=== PATIENT | male | born 1965 | race Caucasian/White ===

== ENCOUNTER → 2022-05-18 | Outpatient (CLI) | payer MEDICARE, MEDICAID, SELFPAY ==
--- NOTE | 2022-05-18 15:19 | MRI_ITS ---
EXAM: MR LUMBAR SPINE WITHOUT AND WITH INTRAVENOUS CONTRAST CLINICAL INDICATION: LUBOSACRAL RADICULOPATHY;LUMBAGO WITH RT SIDED SCIATICA TECHNIQUE: Multiplanar and multisequence MR images of the lumbar spine without and with intravenous contrast. Magnetic field strength 1.5 T. This report was created using Prom[employer] report Pathway [employer] technology. CONTRAST: 19 mL of Clariscan IV. COMPARISON: None. FINDINGS: VERTEBRAE: See below. SPINAL CORD: Unremarkable. Normal position and signal intensity of the conus medullaris. SOFT TISSUES: Unremarkable. DISCS/SPINAL CANAL/NEURAL FORAMINA: L1-L2: Unremarkable. Normal disc height and morphology. Normal spinal canal and lateral recesses. Normal neuroforamina. L2-L3: Loss of disc signal and mild loss of disc height. No spinal canal, lateral recess, or foraminal stenosis. L3-L4: Unremarkable. Normal disc height and morphology. Normal spinal canal and lateral recesses. Normal neuroforamina. L4-L5: Loss of disc signal. No spinal stenosis. Moderate bilateral facet arthropathy. Mild neural foraminal narrowing bilaterally due to facet arthropathy. L5-S1: Mild loss of disc height and disc signal. Mild generalized disc bulge. No spinal canal, foraminal, or lateral recess stenosis. Moderate bilateral facet arthropathy. Mild neural foraminal narrowing bilaterally due to facet arthropathy. MRI/Spine Lumbar W/WO Contrast IMPRESSION: 1. Moderate bilateral facet arthropathy L4-L5 and L5-S1 with associated mild bilateral neural foraminal narrowing. 2. Mild degenerative disc disease L2-L3, L4-L5, and L5-S1 without spinal stenosis or definite nerve root impingement. Electronically Signed: Ahmet Mcconnell MD at 7:02 EDT ,
--- NOTE | 2022-05-18 15:21 | MRI_ITS ---
EXAM: MR PELVIS WITHOUT AND WITH INTRAVENOUS CONTRAST CLINICAL INDICATION: LUMBOSACRAL RADICULOPATHY;LUMBAGO WITH RT SIDED SCIATICA TECHNIQUE: Multiplanar and multisequence MR images of the pelvis without and with intravenous contrast. This report was created using [employer] report Turn technology. CONTRAST: 19 mL of Clariscan IV. COMPARISON: None. FINDINGS: APPENDIX: No evidence of acute appendicitis. INTRAPERITONEAL SPACE: Unremarkable. No ascites or other fluid collection. BLADDER: Unremarkable. REPRODUCTIVE: Unremarkable as visualized. No mass. BONES/JOINTS: Unremarkable. No suspicious lytic or blastic abnormality. SOFT TISSUES: Unremarkable. No pelvic wall hernia. LYMPH NODES: Unremarkable. No enlarged lymph nodes. MRI/Pelvis W/WO Contrast IMPRESSION: Normal pelvis MRI. Electronically Signed: Ahmet Mcconnell MD at 7:06 EDT ,
== END | disposition home or self-care (01) ==
PROVIDERS: PCP Family Medicine Geriatric Medicine
DX: M54.17 Radiculopathy, lumbosacral region (principal); M54.41 Lumbago with sciatica, right side
CPT/HCPCS: 72158; 72197; A9575

== ENCOUNTER → 2022-08-11 | Outpatient (CLI) | payer MEDICARE, MEDICAID, SELFPAY ==
--- NOTE | 2022-08-11 17:52 | MRI_ITS ---
STUDY: MRI BRAIN WITH AND WITHOUT CONTRAST REASON FOR EXAM: Male, 57 years old. OPTIC NERVE ATROPHY- bilat vision loss TECHNIQUE: Standardized multiplanar fat and water weighted pulse sequences were obtained. IV 18cc clariscan was administered for the contrast portion of the examination. COMPARISON: None. FINDINGS: Normal size of the ventricles and extra-axial spaces for the patient''s age. Mild periventricular white matter ischemic changes without mass effect or restricted diffusion... Normal bilateral basal ganglia. Normal thalami. There is no extra-axial fluid accumulation. Normal flow voids within the major intracranial circulation suggesting patency by spin echo criteria. Normal venous enhancement. There is no enhancing intra-axial or extra-axial abnormality. Normal sella turcica, pituitary gland, infundibular stalk, optic chiasm and hypothalamus. Normal tectal plate and pineal gland. Normal midbrain, stefan and medulla. Normal cerebellum. Normal basal cisterns. Normal bilateral temporal bones. Normal bilateral internal auditory canals. Postsurgical changes of the orbits.. Minor mucosal thickening of the ethmoid air cells bilaterally and right frontal sinus. Normal calvarium and skull base. Normal visualized soft tissue structures. Normal visualized upper cervical spine. MRI/Brain W/WO Contrast IMPRESSION: Mild periventricular white matter ischemic changes without evidence for acute infarct Minor bilateral ethmoid and right frontal sinus disease likely chronic Electronically Signed: Miguel Carpio MD at 21:42 EDT ,
== END | disposition home or self-care (01) ==
PROVIDERS: PCP Family Medicine
DX: H47.212 Primary optic atrophy, left eye (principal)
CPT/HCPCS: 70553; A9575

== ENCOUNTER 2023-04-13 13:30 | Day surgery (SDC) | payer MEDICARE, MEDICAID, SELFPAY ==
[2023-04-13 13:54] VITALS: BP 126/66; PULSE 84; RESP 16; TEMP 36.7; O2SAT 98; BMI 27.7
[2023-04-13] MEDS: Lactated Ringers 1,000 ML 15 ML IV (13:59)
--- NOTE | 2023-04-13 14:30 | HP.PCM_ITS ---
[facility] - General General Date of Admission: 04/13/23 Date of Service: 04/13/23 Chief Complaint: Screening colonoscopy HPI Narrative EVON MEDELLIN, is a 58 M who presents today for screening colonoscopy. He has never had a colonoscopy in the past. He denies any abdominal pain. He denies any chest pain or shortness of breath. He denies any headache or dizziness. He does take aspirin on a daily basis. He does have past medical history of seizure disorder which is controlled on medical therapy. [facility] Medical History (Updated 04/07/23 @ 14:52 by Bri Reyez) Alcohol dependence with intoxication, uncomplicated Alcohol use Alcohol use, unspecified with alcohol-induced persisting dementia Antisocial personality disorder Arthritis Back pain Chronic obstructive pulmonary disease, unspecified Conduct disorder, unspecified Constipation, unspecified Delusional disorders Depression Essential (primary) hypertension Gastric reflux Gastro-esophageal reflux disease without esophagitis High cholesterol Hypercholesteremia Hyperlipidemia Hypertension Impulse disorder, unspecified Legal blindness, as defined in [place] Major depressive disorder, recurrent, mild Need for assistance with personal care Paranoid schizophrenia Peripheral vascular disease, unspecified Primary generalized (osteo)arthritis Primary optic atrophy, 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 Schizophrenia Seasonal allergies Smoker Spondylosis without myelopathy or radiculopathy, lumbosacral region Substance abuse Sympathetic uveitis, unspecified eye Unspecified dementia, severe, with other behavioral disturbance Home Medications aspirin 81 mg tablet,delayed release (Adult Low Dose Aspirin) 81 mg PO BID 03/22/23 [History Last Taken 04/09/23] clonazepam 2 mg tablet (Klonopin) 2 mg PO TID 03/22/23 [History Last Taken Unknown] divalproex 500 mg tablet,delayed release (Depakote) 500 mg PO BID 03/22/23 [History Last Taken 04/13/23] fexofenadine 180 mg tablet (Carmen Allergy) 180 mg PO DAILY 03/22/23 [History Last Taken Unknown] haloperidol 1 mg tablet 1 mg PO BID 03/22/23 [History Last Taken 04/13/23] haloperidol lactate 5 mg/mL injection solution 5 mg IM Q6H PRN agitation 03/22/23 [History Last Taken Unknown] lidocaine 4 % topical patch 1 patch topical BID PRN pain 03/22/23 [History Last Taken Unknown] lorazepam 1 mg tablet (Ativan) 1 mg PO Q6H PRN agitation 03/22/23 [History Last Taken Unknown] lorazepam 2 mg/mL injection solution (Ativan) 1 mg IM Q6H PRN agitation 03/22/23 [History Last Taken Unknown] menthol 4 % topical gel (Biofreeze (menthol)) 1 applic topical Q6H PRN pain 03/22/23 [History Last Taken Unknown] paliperidone 9 mg tablet,extended release 24 hr (Invega) 9 mg PO DAILY 03/22/23 [History Last Taken Unknown] polyethylene glycol 3350 17 gram/dose oral powder (Miralax) 4 g PO DAILY 03/22/23 [History Last Taken Unknown] polyvinyl alcohol 1.4 % eye drops 1 drp ophthalmic (eye) TID 03/22/23 [History Last Taken Unknown] cholecalciferol (vitamin D3) 1,250 mcg (50,000 unit) capsule 1,250 mcg PO QWEEK 03/23/23 [History Last Taken Unknown] cholecalciferol (vitamin D3) 50 mcg (2,000 unit) capsule 50 mcg PO DAILY 03/23/23 [History Last Taken Unknown] haloperidol 5 mg tablet 5 mg PO .Q6hrs PRN agitation 03/23/23 [History Last Taken Unknown] mecobalamin (vitamin B12) 1,000 mcg chewable tablet 1,000 mcg PO DAILY 03/23/23 [History Last Taken Unknown] medroxyprogesterone 10 mg tablet (Provera) 10 mg PO DAILY 03/23/23 [History Last Taken 04/13/23] nabumetone 500 mg tablet 500 mg PO BID 03/23/23 [History Last Taken Unknown] triamcinolone acetonide 55 mcg nasal spray aerosol (Nasacort Allergy) 2 spray intranasal DAILY 03/23/23 [History Last Taken Unknown] ziprasidone HCl 80 mg capsule 80 mg PO BID 03/23/23 [History Last Taken 04/13/23] acetaminophen 500 mg tablet (Acetaminophen Extra Strength) 1,000 mg PO Q8H PRN PRN pain 04/07/23 [History Last Taken Unknown] albuterol sulfate 90 mcg/actuation aerosol inhaler (ProAir HFA) 1 inh inhalation Q4H 04/07/23 [History Last Taken Unknown] Allergy/AdvReac Type Severity Reaction Status Date / Time No Known Allergies Allergy Verified 04/13/23 13:51 Family History Mother Colon polyps Grandfather Stomach cancer Social History household members: other details: Nursing Facility, [place] housing: retirement current occupational status: disabled Smoking Status: Current every day smoker tobacco type: cigarettes alcohol intake: former ROS Review of Systems ROS Unobtainable: other Constitutional Constitutional: Denies fatigue, fever(s), poor appetite, weight gain or weight loss ENT HEENT: Denies mouth lesions Cardiovascular Cardiovascular: Denies abdominal bloating, abdominal edema or abdominal pain Respiratory/Chest Respiratory/Chest: Denies change in mental status, change in phlegm color, chest congestion or chest tightness Gastrointestinal Gastrointestinal: Denies belching, bloating, change in bowel habits, change in stool character, chewing difficulty, coffee ground emesis, constipation, cramping, diarrhea, dyspepsia, dysphagia, early satiety, excessive flatus, fecal incontinence, heartburn, hematemesis, hematochezia, hemorrhoids, loose stools, melena, nausea, odynophagia, rectal bleeding, tenesmus, vomiting or weight changes Genitourinary Genitourinary: Denies abdominal discomfort, burning urination or itching Musculoskeletal Musculoskeletal: Reports as per HPI; Denies muscle weakness or myalgias Integumentary Integumentary: Denies jaundice Neurologic Neurologic: Denies lack of coordination or weakness Psychiatric Psychiatric: Denies confusion, depression, memory loss, mood swings, paranoia or suicidal ideation Endocrine Endocrinology: Denies systems reviewed and no addt'l complaints, except as documented Hematologic/Lymphatic Hematologic/Lymphatic: Denies anemia, easy bleeding, easy bruising or lymphadenopathy Allergic/Immunologic Allergic/Immunologic: Denies systems reviewed and no addt'l complaints, except as documented Vital Signs Vital Signs Vital Signs: 04/13/23 13:54 04/13/23 13:54 Temperature 98.1 F Temperature Source Temporal Pulse Rate 84 Respiratory Rate 16 Respiratory Pattern Normal Blood Pressure 126/66 H Blood Pressure Mean 86 Blood Pressure Source Monitor Blood Pressure Position Sitting Blood Pressure Location Right Arm Pulse Ox 98 Oxygen Delivery Method Room Air Weight Weight: 198 lb 13.711 oz Body Mass Index (BMI) 27.7 Assessment & Plan Assessment/Plan (1) Encounter for screening for malignant neoplasm of colon: PLAN: He was explained alternatives, risk, benefits including not withstanding bleeding, infection, sepsis, perforation, need for emergent surgery and . He will have an ASA of 3.
--- NOTE | 2023-04-13 14:45 | COLBX_PTH ---
PATHOLOGY RESULTS PATIENT: EVON MEDELLIN LOC: EN U#:[id number] AGE/SX: 58/M ROOM: RE04/13/[address]: Dr. Tab Jacome DO : 1965 BED: DIS: 04/13/2023 SPEC #: [id number] RECD: 04/14/23 08:02 STATUS: BOLIVAR NESS #: [id number] LITZY: 04/13/23 14:[address]: Tab Jacome DEPT: SURGICAL PATHOLOGY RECD BY: Latoya Mcgregor ENTERED: 04/14/23 08:02 SP TYPE: COLON BX OT DR: Dr. Jorge Villarreal MD Tissues: SPLENIC FLEXURE Sigmoid colon biopsy Procedures: Surgery Specimen Level IV HEADER OPERATION: Colonoscopy - open access PRE-OP DIAGNOSIS: Screening TISSUE SUBMITTED: A - Splenic flexure polyp biopsy, B - Sigmoid polyp biopsy MICROSCOPIC DIAGNOSIS A. Splenic flexure polyp, biopsy: Hyperplastic polyp. B. Sigmoid colon polyp, biopsy: Fragments of tubular adenoma. AMPARO:valeria 04/15/2023 MICROSCOPIC DESCRIPTION Slides are reviewed. GROSS DESCRIPTION A - Received in fixative is one container labeled with the patient's name and designated splenic flexure polyp biopsy. The specimen consists of one irregular fragment of light aguirre soft tissue that measures 0.3 x 0.3 x 0.1 cm. The specimen is totally submitted in one cassette. B - Received in fixative is one container labeled with the patient's name and designated sigmoid polyp biopsy. The specimen consists of two irregular fragments of light aguirre soft tissue that in aggregate measure 0.6 x 0.3 x 0.1 cm. The specimen is totally submitted in one cassette. / AMPARO:valeria 04/14/2023 TC:5 CPT: 25369 x2
[2023-04-13 15:10] VITALS: BP 126/66; BP 97/56; PULSE 60; RESP 18; TEMP 36.4; O2SAT 100
--- NOTE | 2023-04-13 15:14 | OP.COLON_ITS ---
Patient Name: Colby Leon Procedure Date: 04/13/2023 2:38 PM Date of : 1965 Age: 58 Procedure: Colonoscopy Indications: Screening for colorectal malignant neoplasm Providers: Tab Jacome DO Referring MD: Tab Jacome DO Medicines: Monitored Anesthesia Care Patient Profile: This is a 58 year old male. Refer to note in patient chart for documentation of history and physical. Last Colonoscopy: none. The patient's first colonoscopy is today. Complications: No immediate complications. Procedure: Pre-Anesthesia Assessment: - Prior to the procedure, a History and Physical was performed, and patient medications and allergies were reviewed. The patient is competent. The risks and benefits of the procedure and the sedation options and risks were discussed with the patient. All questions were answered and informed consent was obtained. Patient identification and proposed procedure were verified by the physician in the pre-procedure area. Mental Status Examination: alert and oriented. Airway Examination: normal oropharyngeal airway and neck mobility. Respiratory Examination: clear to auscultation. CV Examination: normal. Prophylactic Antibiotics: The patient does not require prophylactic antibiotics. Prior Anticoagulants: The patient has taken no anticoagulant or antiplatelet agents. ASA Grade Assessment: II - A patient with mild systemic disease. After reviewing the risks and benefits, the patient was deemed in satisfactory condition to undergo the procedure. The anesthesia plan was to use monitored anesthesia care (MAC). Immediately prior to administration of medications, the patient was re-assessed for adequacy to receive sedatives. The heart rate, respiratory rate, oxygen saturations, blood pressure, adequacy of pulmonary ventilation, and response to care were monitored throughout the procedure. The physical status of the patient was re-assessed after the procedure. After I obtained informed consent, the scope was passed under direct vision. Throughout the procedure, the patient's blood pressure, pulse, and oxygen saturations were monitored continuously. The Colonoscope was introduced through the anus and advanced to the cecum, identified by appendiceal orifice and ileocecal valve. The colonoscopy was performed without difficulty. The patient tolerated the procedure well. The quality of the bowel preparation was adequate. The ileocecal valve, appendiceal orifice, and rectum were photographed. Scope In: 2:51:05 PM Scope Withdrawal Time 0 hours 9 minutes 53 seconds Scope Out: 3:05:47 PM Total Procedure Duration Time 0 hours 14 minutes 42 seconds Findings: The perianal and digital rectal examinations were normal. A few small-mouthed diverticula were found in the sigmoid colon. Two sessile polyps were found in the sigmoid colon and splenic flexure. The polyps were 1 to 2 mm in size. These polyps were removed with a jumbo cold forceps. Resection and retrieval were complete. Verification of patient identification for the specimen was done. The exam was otherwise without abnormality on direct and retroflexion views. Impression: - Diverticulosis in the sigmoid colon. - Two 1 to 2 mm polyps in the sigmoid colon and at the splenic flexure, removed with a jumbo cold forceps. Resected and retrieved. - The examination was otherwise normal on direct and retroflexion views. Recommendation: - Await pathology results. - Repeat colonoscopy in 5 years for surveillance. - Continue present medications. Procedure Code(s): --- Professional --- 79820, Colonoscopy, flexible; with biopsy, single or multiple CPT copyright 2021 [employer]. All rights reserved. The codes documented in this report are preliminary and upon architectural manager review may be revised to meet current compliance requirements. Tab Jacome DO 04/13/2023 3:14:11 PM This report has been signed electronically. Number of Addenda: 0 Note Initiated On: 04/13/2023 2:38 PM
[2023-04-13 15:15] VITALS: BP 107/66; BP 126/66; PULSE 60; RESP 18; O2SAT 97
--- NOTE | 2023-04-13 15:15 | OP.CCLET_ITS ---
04/13/2023 Roberth Villarreal Re : Colonoscopy procedure for Colby Leon Dear Phil This procedure was performed on Thursday, April 13, 2023. My impressions and recommendations are as follows: Impressions : - Diverticulosis in the sigmoid colon. - Two 1 to 2 mm polyps in the sigmoid colon and at the splenic flexure, removed with a jumbo cold forceps. Resected and retrieved. - The examination was otherwise normal on direct and retroflexion views. Recommendations : - Await pathology results. - Repeat colonoscopy in 5 years for surveillance. - Continue present medications. My findings are described in the full procedure note, which is enclosed. If I can be of further assistance, please feel free to contact me at . Sincerely, Tab Jacome, 04/13/2023 3:14:11 PM This report has been signed electronically.
[2023-04-13 15:20] VITALS: BP 110/58; BP 126/66; PULSE 58; RESP 18; O2SAT 100
[2023-04-13 15:25] VITALS: BP 125/82; BP 126/66; PULSE 69; RESP 18; TEMP 37; O2SAT 99
[2023-04-13 15:56] VITALS: BP 126/66
--- OUTSIDE RECORDS SUMMARY | 2023-04-13 18:34 | XMS RPT_ITS | CCD ---
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 Name Role Phone Sheron Villarreal Primary Care Provider [phone] NAZARIO CLEMENS Referring Unavailable NAZARIO CLEMENS Attending Unavailable SHERON VILLARREAL [facility] Unavailab NAZARIO Lyons K Attending Unavailable CLEMENSKADY DELGADOINDER K Referring Unavailable SHERON VILLARREAL [facility] Unavailab le ELBERT, NAZARIO K Attending Unavailable KADY CLEMENSINDER K Referring Unavailable SHERON VILLARREAL [facility] Unavailab le ELBERT, NAZARIO K Attending Unavailable SHERON VILLARREAL [facility] Unavailab le CLEMENS, NAZARIO K Referring Unavailable CLEMENSNAZARIO K Attending Unavailable SHERON VILLARREAL EMILY [facility] Unavailab le Allergies Allergy Classification Reported Allergen(s) Allergy Type Date of Onset Reaction(s) Facility (5 sources) diphenhydrAMINE; Translations: [DIPHENHYDRAMINE HCL] Drug Allergy 09-22-2006 Anaphylaxis [facility] Work Phone: Medications Current Medications Medication Drug Class(es) Dates Sig (Normalized) Sig (Original) benoxinate hydrochloride 4 mg/ml / fluorescein sodium 2.5 mg/ml ophthalmic solution (2 sources) Diagnostic Dye Start: 12-23-2021 End: 12-24-2021 fluorescein-benoxi jerrica 0.25-0.4 % 1 Drop (FLURESS) Completed/Discontinued Medications Medication Drug Class(es) Dates Sig (Normalized) Sig (Original) Albuterol (4 sources) beta2-Adrenergic Agonist albuter ol sulfate (VENTOLIN HFA INHALATION) Inhale 1 Puff as instructed as directed. 0 Active Problems Active Problems Problem Classification Problem Date Documented Da te Episodic/Chronic Cataract (20 sources) After-cataract with vision obscured following extraction of cataract; Translations: [Other secondary cataract, bilateral] Onset: 12-25-2020 Chronic Inflammation; infection of eye (except that caused by tuberculosis or sexually transmitteddisease) (9 sources) Iridocyclitis; Translations: [Chronic iridocyclitis, bilateral] Onset: 12-25-2020 Chronic Other eye disorders (5 sources) Optic atrophy of left eye; Translations: [Other optic atrophy, left eye] Onset: 12-25-2020 Chronic Other hematologic conditions (7 sources) H/O: Disorder; Translations: [Personal history of diseases of the blood and blood-forming organs and certain disorders involving the immune mechanism] Onset: 12-25-2020 Episodic Other nervous system disorders (1 source) History of uveitis; Translations: [Personal history of other diseases of the nervous system and sense organs] Episodic Retinal detachments; defects; vascular occlusion; and retinopathy (8 sources) Bilateral age-related exudative degeneration of macula; Translations: [Exudative age-related macular degeneration, bilateral, stage unspecified] Onset: 12-25-2020 Chronic Schizophrenia and other psychotic disorders (8 sources) Schizophrenia; Translations: [Schizophrenia, unspecified] 10-06-2006 Chronic Past or Other Problems Problem Classification Problem Date Documented Da te Episodic/Chronic Nausea and vomiting (4 sources) Nausea and vomiting; Translations: [Nausea with vomiting, unspecified] Onset: 09-28-2006 09-28-2006 Episodic Results Test Name Value Interpretation Reference Range Facil ity Encounters Encounter Date Encounter Type Care Provider Facility Start: 06-15-2022 End: 06-15-2022 ambulatory NAZARIO CLEMENS Facility:[facility] Start: 04-03-2022 End: 04-03-2022 ambulatory NAZARIO CLEMENS Facility:[facility] Start: 12-23-2021 End: 12-23-2021 ambulatory NAZARIO CLEMENS Facility:[facility] Start: 12-23-2021 End: 12-23-2021 Patient encounter procedure Nazario Clemens MD Work Phone: Ophthalmology Procedures Date Procedure Procedure Detail Performing Clinician Start: 12-23-2021 Fundus photography w/interpretation & report Nazario Clemens MD Work Phone: Start: 12-23-2021 Post-cataract laser surgery Nazario Clemens MD Work Phone: Start: 08-12-2021 Post-cataract laser surgery Nazario Clemens MD Work Phone: Start: 12-25-2020 Fundus photography w/interpretation & report Nazario Clemens MD Work Phone: Plan of Treatment Date Care Activity Detail Author Start: 10-23-2021 Influenza vaccination C [facility] Start: 02-22-2021 DEPRESSION ASSESSMENT DEPRESSION ASS ESSMENT [facility] Start: 10-23-2020 Influenza vaccination INFLUENZA (#1) [facility] Start: 01-31-2020 PROSTATE CANCER SCRE ENING DISCUSSION PROSTATE CANCER SCREENING DISCUSSION [facility] Start: 2015 SHINGRIX VACCINE (1 of 2) SHINGRIX V ACCINE (1 of 2) [facility] Start: 2010 COLOGUARD (FIT-DNA) COLOGUARD (FIT-D NA) [facility] Start: 2010 Colonoscopy COLONOSCOPY [facility] Start: 2010 COLORECTAL CANCER SCREENING COLORECTAL CANCER SCREENING [facility] Start: [address] COLONOGRAPHY [facility] Start: 2010 DIABETES SCREEN DIABETES SCREEN [facility] Start: 2010 FECAL OCCULT BLOOD FECAL OCCULT BLOO D [facility] Start: 2010 SIGMOIDOSCOPY SIGMOIDOSCOPY [facility] Start: 01-14-2006 Urine microalbumin profile DTAP,TDAP ,TD (1 - Tdap) [facility] Start: 01-31-2000 LIPID SCREEN LIPID SCREEN [facility] Start: 1983 HEPATITIS C SCREENING HEPATITIS C SC REENING [facility] Start: 1983 HIV SCREENING HIV SCREENING [facility] Start: 1977 Adult depression scr eening assessment DEPRESSION SCREENING [facility] Start: 1977 COVID-19 VACCINE (1) COVID-19 VACCIN E (1) [facility] Start: 1971 PNEUMOCOCCAL (1 - PCV) PNEUMOCOCCAL (1 - PCV) [facility] Start: 1970 COVID-19 VACCINE (#1) COVID-19 VACCI NE (#1) [facility] Start: 06-09-1966 COVID-19 VACCINE (#1) COVID-19 VACCI NE (#1) [facility] Start: 1965 HEPATITIS B (1 of 3 - 3-dose series) HEPATITIS B (1 of 3 - 3-dose series) [facility] Immunizations Immunization Date Immunization Notes Care Provider Davin agarwal 01-13-2006 tetanus and diphther ia toxoids, adsorbed, preservative free, for adult use (2 Lf of tetanus toxoid and 2 Lf of diphtheria toxoid) Nazario Clemens MD Work Phone: [facility] Work Phone: Payers Date Payer Category Payer Medicaid [facility] MEDICAID MYC ARE [facility] MEDICAID [id number] 2020-Present [phone] [address] [place] [address] Medicaid [id number] 2020 Medicaid [id number] 2020 Medicare [id number] Social History Date Type Detail Facility Start: 12-25-2020 End: 05-05-2021 Tobacco smoking status NHIS Current every day smoker [facility] History of tobacco use [facility]arette [facility] Work Phone: Start: 12-25-2020 End: 05-05-2021 Cigarettes smoked current (pack per day) - Reported [facility] Start: 12-25-2020 End: 12-23-2021 Alcohol intake Current non-drinker of alcohol (finding) [facility] Start: 1965 [facility] Exposure to SARS-CoV -2 (event) Not sure [facility] Start: 05-05-2021 Tobacco use and exposure Smokeless tobacco non-user [facility] Work Phone: Clinical Notes 12-25-2020 to 06-15-2022 Patient InstructionsMohijoaquin Clemens MD - 12/23/2021 3:45 PM EDTPatient InstructionsMonohemi Clemens MD - 09/02/2021 2:43 PM EDTMalma Clemens MD - 08/12/2021 3:26 PM EDT Note Date & Type Note Facility 06-15-2022 Note HNO ID: [id number] Author: Nazario Clemens MD Service: ? Author Type: Physician Type: Progress Notes Filed: 06/15/2022 1:18 PM Note Text: ASSESSMENT/PLAN: 1. Contusion of left eye, initial encounter - ICD9: 921.9, ICD10: S05.12XA (primary diagnosis) Monitor 2. Subluxed cataract of left eye - ICD9: 379.32, ICD10: H27.112 3. Aphakia, left eye - ICD9: 379.31, ICD10: H27.02 Prognosis poor Follow up with Dr. Mars I have confirmed and edited as necessary the relevant ophthalmic history, review of systems, surgical history, and ophthalmological examination findings as obtained by the ophthalmic technical staff. I have seen and examined Colby Leon. I have discussed the examination findings, diagnosis, and treatment options with Colby Leon and/or his family. I have also reviewed and agree with the assessment and plan as stated above and agree with all its relevant components. I gave the patient the opportunity to ask questions about the findings, diagnosis, and treatment options. Nazario Clemens MD [facility] 04-03-2022 Note HNO ID: [id number] Author: Nazario Clemens MD Service: ? Author Type: Physician Type: Progress Notes Filed: 04/03/2022 4:54 PM Note Text: ASSESSMENT/PLAN: 1. Bilateral exudative age-related macular degeneration, unspecified stage (HCC) - ICD9: 362.52, ICD10: H35.3230 (primary diagnosis) -Please monitor each eye daily with Amsler Grid. AREDS 2 Vitamins are available over the counter at any drug store. Continue care with Dr. Mars 2. Optic atrophy Monitor 3. Pseudophakia of both eyes - ICD9: V43.1, ICD10: Z96.1 Yag laser left eye 12/23/2021 Yag laser right eye 08/12/2021 -Stable/Monitor Recommended updated refraction and glasses with Dr. Covington 4. History of sarcoidosis - ICD9: V12.29, ICD10: Z86.2 -Continue to monitor with primary care physician. 5. Other schizophrenia (HCC) - ICD9: 295.80, ICD10: F20.89 -Continue to monitor with primary care physician. I have confirmed and edited as necessary the relevant ophthalmic history, review of systems, surgical history, and ophthalmological examination findings as obtained by the ophthalmic technical staff. I have seen and examined Colby Leon. I have discussed the examination findings, diagnosis, and treatment options with Colby Leon and/or his family. I have also reviewed and agree with the assessment and plan as stated above and agree with all its relevant components. I gave the patient the opportunity to ask questions about the findings, diagnosis, and treatment options. Nazario Clemens MD [facility] 12-23-2021 Note HNO ID: [id number] Author: Nazario Clemens MD Service: ? Author Type: Physician Type: Progress Notes Filed: 12/23/2021 4:33 PM Note Text: ASSESSMENT/PLAN: 1. After-cataract obscuring vision, left - ICD9: 366.53, ICD10: H26.492 (primary diagnosis) - YAG CAPSULOTOMY OS (LEFT EYE) 2. Pseudophakia of both eyes - ICD9: V43.1, ICD10: Z96.1 Monitor 3. Bilateral exudative age-related macular degeneration, unspecified stage (HCC) - ICD9: 362.52, ICD10: H35.3230 - FUNDUS PHOTOS OU (BOTH EYES) Please monitor each eye daily with Amsler Grid. AREDS 2 Vitamins are available over the counter at any drug store. Continue care with Dr. Mars. 4. History of sarcoidosis - ICD9: V12.29, ICD10: Z86.2 Continue to monitor with primary care physician. 5. Other schizophrenia (HCC) - ICD9: 295.80, ICD10: F20.89 Continue to monitor with primary care physician. Nazario Clemens MD I have confirmed and edited as necessary the relevant ophthalmic history, review of systems, surgical history, and ophthalmological examination findings as obtained by the ophthalmic technical staff. I have seen and examined Colby Leon. I have discussed the examination findings, diagnosis, and treatment options with Colby Leon and/or his family. I have also reviewed and agree with the assessment and plan as stated above and agree with all its relevant components. I gave the patient the opportunity to ask questions about the findings, diagnosis, and treatment options. [facility] 12-23-2021 Instructions Nazario Clemens MD - 12/23/2021 3:47 PM EDT Please monitor each eye daily with Amsler Grid. AREDS 2 Vitamins are available over the counter at any drug store. If you have any questions please contact our office at [phone]. After office hours or on the weekend, please call Dr. Clemens on his cell phone at [phone]. documented in this encounter [facility] 12-23-2021 History of Present illness Narrative ASSESSMENT/PLAN: 1. After-cataract obscuring vision, left - ICD9: 366.53, ICD10: H26.492 (primary diagnosis) - YAG CAPSULOTOMY OS (LEFT EYE) 2. Pseudophakia of both eyes - ICD9: V43.1, ICD10: Z96.1 Monitor 3. Bilateral exudative age-related macular degeneration, unspecified stage (HCC) - ICD9: 362.52, ICD10: H35.3230 - FUNDUS PHOTOS OU (BOTH EYES) Please monitor each eye daily with Amsler Grid. AREDS 2 Vitamins are available over the counter at any drug store. Continue care with Dr. Mars. 4. History of sarcoidosis - ICD9: V12.29, ICD10: Z86.2 Continue to monitor with primary care physician. 5. Other schizophrenia (HCC) - ICD9: 295.80, ICD10: F20.89 Continue to monitor with primary care physician. Nazario Clemens MD I have confirmed and edited as necessary the relevant ophthalmic history, review of systems, surgical history, and ophthalmological examination findings as obtained by the ophthalmic technical staff. I have seen and examined Colby Leon. I have discussed the examination findings, diagnosis, and treatment options with Colby Leon and/or his family. I have also reviewed and agree with the assessment and plan as stated above and agree with all its relevant components. I gave the patient the opportunity to ask questions about the findings, diagnosis, and treatment options. documented in this encounter [facility] 09-02-2021 Note HNO ID: [id number] Author: Nazario Clemens MD Service: ? Author Type: Physician Type: Progress Notes Filed: 09/02/2021 2:48 PM Note Text: ASSESSMENT/PLAN: 1. Bilateral exudative age-related macular degeneration, unspecified stage (HCC) - ICD9: 362.52, ICD10: H35.3230 (primary diagnosis) Continue care with Dr. Jerad Breaux 2. After-cataract obscuring vision, left - ICD9: 366.53, ICD10: H26.492 3. Pseudophakia of both eyes - ICD9: V43.1, ICD10: Z96.1 Prognosis guarded left eye, Visual acuity not likely to improve with Yag laser S/p Yag laser 08/12/2021 Recommended updated refraction and glasses with Dr. Martin Renner Discontinue the Acular in the right eye 4. Other schizophrenia (HCC) - ICD9: 295.80, ICD10: F20.89 5. History of uveitis - ICD9: V12.49, ICD10: Z86.69 6. Delusional disorder (HCC) - ICD9: 297.1, ICD10: F22 Nazario Clemens MD I have confirmed and edited as necessary the relevant ophthalmic history, review of systems, surgical history, and ophthalmological examination findings as obtained by the ophthalmic technical staff. I have seen and examined Colby Leon. I have discussed the examination findings, diagnosis, and treatment options with Colby Leon and/or his family. I have also reviewed and agree with the assessment and plan as stated above and agree with all its relevant components. I gave the patient the opportunity to ask questions about the findings, diagnosis, and treatment options. [facility] 09-02-2021 Instructions Nazario Clemens MD - 09/02/2021 2:47 PM EDT ASSESSMENT/PLAN: 1. Bilateral exudative age-related macular degeneration, unspecified stage (HCC) - ICD9: 362.52, ICD10: H35.3230 (primary diagnosis) Continue care with Dr. Jerad Breaux 2. After-cataract obscuring vision, left - ICD9: 366.53, ICD10: H26.492 3. Pseudophakia of both eyes - ICD9: V43.1, ICD10: Z96.1 Prognosis guarded left eye, Visual acuity not likely to improve with Yag laser S/p Yag laser 08/12/2021 Recommended updated refraction and glasses with Dr. aMrtin Renner Discontinue the Acular in the right eye 4. Other schizophrenia (HCC) - ICD9: 295.80, ICD10: F20.89 5. History of uveitis - ICD9: V12.49, ICD10: Z86.69 6. Delusional disorder (HCC) - ICD9: 297.1, ICD10: F22 Nazario Clemens MD documented in this encounter [facility] 09-02-2021 History of Present illness Narrative ASSESSMENT/PLAN: 1. Bilateral exudative age-related macular degeneration, unspecified stage (HCC) - ICD9: 362.52, ICD10: H35.3230 (primary diagnosis) Continue care with Dr. Jerad Breaux 2. After-cataract obscuring vision, left - ICD9: 366.53, ICD10: H26.492 3. Pseudophakia of both eyes - ICD9: V43.1, ICD10: Z96.1 Prognosis guarded left eye, Visual acuity not likely to improve with Yag laser S/p Yag laser 08/12/2021 Recommended updated refraction and glasses with Dr. Martin Renner Discontinue the Acular in the right eye 4. Other schizophrenia (HCC) - ICD9: 295.80, ICD10: F20.89 5. History of uveitis - ICD9: V12.49, ICD10: Z86.69 6. Delusional disorder (HCC) - ICD9: 297.1, ICD10: F22 Nazario Clemens MD I have confirmed and edited as necessary the relevant ophthalmic history, review of systems, surgical history, and ophthalmological examination findings as obtained by the ophthalmic technical staff. I have seen and examined Colby Leon. I have discussed the examination findings, diagnosis, and treatment options with Colby Leon and/or his family. I have also reviewed and agree with the assessment and plan as stated above and agree with all its relevant components. I gave the patient the opportunity to ask questions about the findings, diagnosis, and treatment options. documented in this encounter [facility] 08-12-2021 Note HNO ID: [id number] Author: Nazario Clemens MD Service: ? Author Type: Physician Type: Progress Notes Filed: 08/12/2021 4:04 PM Note Text: ASSESSMENT/PLAN: 1. After-cataract obscuring vision, right - ICD9: 366.53, ICD10: H26.491 (primary diagnosis) - YAG CAPSULOTOMY OD (RIGHT EYE) VISUAL PROGNOSIS GUARDED RIGHT EYE. Current Ophthalmic Meds keTORolac (ACULAR) 0.5 % ophthalmic solution Use 1 Drop in the right eye four times daily. 2. After-cataract obscuring vision, left - ICD9: 366.53, ICD10: H26.492 Monitor 3. Pseudophakia of both eyes - ICD9: V43.1, ICD10: Z96.1 Intraocular lens implant in good position Both Eyes. 4. Bilateral exudative age-related macular degeneration, unspecified stage (HCC) - ICD9: 362.52, ICD10: H35.3230 Please monitor each eye daily with Amsler Grid. AREDS 2 Vitamins are available over the counter at any drug store. 5. Chronic uveitis of both eyes - ICD9: 364.10, ICD10: H20.13 Monitor 6. History of sarcoidosis - ICD9: V12.29, ICD10: Z86.2 Continue to monitor with primary care physician. 7. Schizoaffective disorder, depressive type (HCC) - ICD9: 295.70, ICD10: F25.1 Continue to monitor with primary care physician/Psychology. Nazario Clemens MD I have confirmed and edited as necessary the relevant ophthalmic history, review of systems, surgical history, and ophthalmological examination findings as obtained by the ophthalmic technical staff. I have seen and examined Colby Leon. I have discussed the examination findings, diagnosis, and treatment options with Colby Leon and/or his family. I have also reviewed and agree with the assessment and plan as stated above and agree with all its relevant components. I gave the patient the opportunity to ask questions about the findings, diagnosis, and treatment options. [facility] 08-12-2021 History of Present illness Narrative ASSESSMENT/PLAN: 1. After-cataract obscuring vision, right - ICD9: 366.53, ICD10: H26.491 (primary diagnosis) - YAG CAPSULOTOMY OD (RIGHT EYE) VISUAL PROGNOSIS GUARDED RIGHT EYE. Current Ophthalmic Meds keTORolac (ACULAR) 0.5 % ophthalmic solution Use 1 Drop in the right eye four times daily. 2. After-cataract obscuring vision, left - ICD9: 366.53, ICD10: H26.492 Monitor 3. Pseudophakia of both eyes - ICD9: V43.1, ICD10: Z96.1 Intraocular lens implant in good position Both Eyes. 4. Bilateral exudative age-related macular degeneration, unspecified stage (HCC) - ICD9: 362.52, ICD10: H35.3230 Please monitor each eye daily with Amsler Grid. AREDS 2 Vitamins are available over the counter at any drug store. 5. Chronic uveitis of both eyes - ICD9: 364.10, ICD10: H20.13 Monitor 6. History of sarcoidosis - ICD9: V12.29, ICD10: Z86.2 Continue to monitor with primary care physician. 7. Schizoaffective disorder, depressive type (HCC) - ICD9: 295.70, ICD10: F25.1 Continue to monitor with primary care physician/Psychology. Nazario Clemens MD I have confirmed and edited as necessary the relevant ophthalmic history, review of systems, surgical history, and ophthalmological examination findings as obtained by the ophthalmic technical staff. I have seen and examined Colby Leon. I have discussed the examination findings, diagnosis, and treatment options with Colby Leon and/or his family. I have also reviewed and agree with the assessment and plan as stated above and agree with all its relevant components. I gave the patient the opportunity to ask questions about the findings, diagnosis, and treatment options. documented in this encounter [facility] documented as of this encounter (statuses as of 09/02/2021) [facility] of Past illness Narrative* Problem Noted Date Resolved Date After-cataract obscuring vision, right 2 09/02/2021 documented as of this encounter (statuses as of 12/23/2021) [facility] Instructions* Patient Instructions* Nazario Clemens MD - 12/25/2020 2:43 PM EDT - continue: Pred Forte eyedrops- 1 drop both eyes daily. Begin: Systane Complete Artificial Tears - Use 1 Drop into both eyes three times a day. Mother to get records from Dr. Mars and bring to us. Please monitor each eye daily with A[employer]ler Grid. AREDS 2 Vitamins are available over the counter at any drug store. If you have any questions please contact our office at [phone]. After office hours or on the weekend, please call Dr. Clemens on his cell phone at [phone]. [facility] History of Present illness Narrative* Nazario Clemens MD - 12/25/2020 2:40 PM EDT ASSESSMENT/PLAN: 1. Bilateral exudative age-related macular degeneration, unspecified stage (HCC) - ICD9: 362.52, ICD10: H35.3230 (primary diagnosis) Please monitor each eye daily with Amsler Grid. AREDS 2 Vitamins are available over the counter at any drug store. Patient's mother to get records from Dr. Mars and bring to us. - FUNDUS PHOTOS OU (BOTH EYES) - OCT MACULA CIRRUS OU (BOTH EYES) 2. 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 3. Pseudophakia of both eyes - ICD9: V43.1, ICD10: Z96.1 - right eye Intraocular lens subluxated. - left eye Intraocular lens well-centered. 4. Optic atrophy of left eye - ICD9: 377.10, ICD10: H47.292 - monitor. 5. HIstory of Chronic uveitis of both eyes - ICD9: 364.10, ICD10: H20.13 - continue: Pred Forte eyedrops- 1 drop both eyes daily. Begin: Systane Complete Artificial Tears - Use 1 Drop into both eyes three times a day. 6. History of sarcoidosis - ICD9: V12.29, ICD10: Z86.2 -monitor. Nazario Clemens MD I have confirmed and edited as necessary the relevant ophthalmic history, review of systems, surgical history, and ophthalmological examination findings as obtained by the ophthalmic technical staff.I have seen and examined Colby Leon. I have discussed the examination findings, diagnosis, and treatment options with Colby Leon and/or his family. I have also reviewed and agree with the assessment and plan as stated above and agree with all its relevant components. I gave the patient the opportunity to ask questions about the findings, diagnosis, and treatment options. [facility] Diagnosis Bilateral exudative age-related macular degeneration, unspecified stage (HCC)- Primary After-cataract obscuring vision, bilateral Pseudophakia of both eyes Lens replaced by other means Optic atrophy of left eye HIstory of Chronic uveitis of both eyes Chronic iridocyclitis, unspecified History of sarcoidosis Personal history of other endocrine, metabolic, and immunity disorders [facility] Diagnosis After-cataract obscuring vision, right- Primary After-cataract obscuring vision, left Pseudophakia of both eyes Lens replaced by other means Bilateral exudative age-related macular degeneration, unspecified stage (HCC) Chronic uveitis of both eyes History of sarcoidosis Personal history of other endocrine, metabolic, and immunity disorders Schizoaffective disorder, depressive type ([facility]) Schizoaffective disorder, unspecified condition documented in this encounter [facility]* Diagnosis Bilateral exudative age-related macular degeneration, unspecified stage (HCC)- Primary After-cataract obscuring vision, left Pseudophakia of both eyes Lens replaced by other means Other schizophrenia ([facility]) History of uveitis Personal history of other disorders of nervous system and sense organs Delusional disorder (HCC) [facility] After-cataract obscuring vision, left- Primary Pseudophakia of both eyes Lens replaced by other means Bilateral exudative age-related macular degeneration, unspecified stage (HCC) History of sarcoidosis Personal history of other endocrine, metabolic, and immunity disorders Other schizophrenia ([facility]) documented in this encounter [facility] Medications Administered Section Active Administered Medications - up to 3 most recent administrations Medication Order MAR Action Action Date Dose Rate Site proparacaine 0.5 % 1 Drop (ALCAINE) 1 Drop, BOTH EYES, DIRECTED, Starting on Wed12/25/20 at 1400, Until Wed12/26/20 at 0159, Administer for pneumo tonometry, tonopen tonometry, or pachymetry. In the event of a proparacaine shortage, administer tetracaine 0.5% ophthalmic drops 1 drop in the left eye as directed for pneumo tonometry, tonopen tonometry, or pachymetry Given 12/25/2020 2:00 PM EDT 1 Drop tropicamide 1 % 1 Drop (MYDRIACYL) 1 Drop, BOTH EYES, DIRECTED, Starting on Wed12/25/20 at 1400, Until Wed12/26/20 at 0159, Administer for dilation Given 12/25/2020 2:00 PM EDT 1 Drop Active Administered Medications - up to 3 most recent administrations Medication Order MAR Action Action Date Dose Rate Site fluorescein-benoxinate 0.25-0.4 % 1 Drop (FLURESS) 1 Drop, BOTH EYES, DIRECTED, Starting on Wed12/23/21 at 1600, Until Wed12/24/21 at 0359, Administer for applanation tonometry. In the event of a Fluress shortage, administer Skye-Fluor 1 drop into both eyes as directed for applanation tonometry Given 12/23/2021 4:00 PM EDT 1 Drop PHENYLephrine 2.5 % 1 Drop (AK-DILATE, CARRIE-SYNEPHRINE) 1 Drop, BOTH EYES, DIRECTED, Starting on Wed12/23/21 at 1600, Until Wed12/24/21 at 0359, Administer for dilation PROTECT FROM LIGHT Given 12/23/2021 4:00 PM EDT 1 Drop proparacaine 0.5 % 1 Drop (ALCAINE) 1 Drop, BOTH EYES, DIRECTED, Starting on Wed12/23/21 at 1600, Until Wed12/24/21 at 0359, Administer for pneumo tonometry, tonopen tonometry, or pachymetry. In the event of a proparacaine shortage, administer tetracaine 0.5% ophthalmic drops 1 drop in the left eye as directed for pneumo tonometry, tonopen tonometry, or pachymetry Given 12/23/2021 4:00 PM EDT 1 Drop tropicamide 1 % 1 Drop (MYDRIACYL) 1 Drop, BOTH EYES, DIRECTED, Starting on Wed12/23/21 at 1600, Until Wed12/24/21 at 0359, Administer for dilation Given 12/23/2021 4:00 PM EDT 1 Drop Summary Purpose Family History No Family History Records Found Advance Directives No Advanced Directives Records Found Additional Source Comments Source Comments (unrecognize d section and content) In the event this informatio n is protected by the Federal Confidentiality of Alcohol and Drug Abuse Patient Records regulations: The Federal rules restrict any use of the information to criminally investigate or prosecute any alcohol or drug abuse patient.[facility] event this information is protected by the Federal Confidentiality of Alcohol and Drug Abuse Patient Records regulations: The Federal rules restrict any use of the information to criminally investigate or prosecute any alcohol or drug abuse patient.[facility] the event this information is protected by the Federal Confidentiality of Alcohol and Drug Abuse Patient Records regulations: The Federal rules restrict any use of the information to criminally investigate or prosecute any alcohol or drug abuse patient.[facility] the event this information is protected by the Federal Confidentiality of Alcohol and Drug Abuse Patient Records regulations: The Federal rules restrict any use of the information to criminally investigate or prosecute any alcohol or drug abuse patient.[facility] Reason for Visit (unrecogniz ed section and content) Reason Comments Blurred Vision Both Eyes continues Difficulty Reading Both Eyes Exudative Macular Degeneration Follow Up Specialty Diagnoses / Procedures Referred By Teena rowan Referred To Contact OPHTHALMOLOGY Diagnoses Exudative age-related macular degeneration, bilateral, stage unspecified Other secondary cataract, bilateral Presence of intraocular lens Yag laser posterior capsulotomy Procedures REFERRAL TO [facility]CIAL [facility]SEL[facility] POST-CATARACT LASER SURGERY EST ADULT Self Nazario Clemens MD [address] [place] [id number] Referral ID Status Reason Start Date Expiration Date V isits Requested Visits Authorized [id number] Closed Financial Clearance Required - [facility]ON Payor 06/06/2021 02/21/2022 1 1 Reason Comments Blurry Vision Left Eye Difficulty Reading Left Eye Specialty Diagnoses / Procedures Referred By Teena rowan Referred To Contact Ophthalmology / OPHTHALMOLOGY Diagnoses Other secondary cataract, right eye Other secondary cataract, left eye Presence of intraocular lens YAG Laser OD Procedures POST-CATARACT LASER SURGERY LASER Nazario Clemens MD [address] [place] [phone] Nazario Clemens MD [address] [place] [address] Referral ID Status Reason Start Date Expiration Date Visits Re quested Visits Authorized [id number] Closed 08/14/2021 02/21/2022 1 1 Reason Comments Blurred Vision Right Eye Difficulty Reading Right Eye Care Teams (unrecognized sec tion and content) 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 This clinical summary was aggregated from multiple sources. Caution should be exercised in using it in the provision of clinical care. This summary normalizes information from multiple sources, and as a consequence, information in this document may materially change the coding, format and clinical context of patient data. In addition, data may be omitted in some cases. CLINICAL DECISIONS SHOULD BE BASED ON THE PRIMARY CLINICAL RECORDS. [employer] provides no warranty or guarantee of the accuracy or completeness of information in this document.
== END 2023-04-13 15:57 | disposition home or self-care (01) ==
LOC: EN 13:31 → AC 14:21
PROVIDERS: PCP Family Medicine; Referring Provider Internal Medicine Gastroenterology; Visit Provider Internal Medicine Gastroenterology
PROC: 0DJD8ZZ Inspection of Lower Intestinal Tract, Via Natural or Artificial Opening Endoscopic (ICD-10-PCS; CPT 45378; principal; 2023-04-13 14:40)
DX: Z12.11 Encounter for screening for malignant neoplasm of colon (principal); F20.9 Schizophrenia, unspecified; J44.9 Chronic obstructive pulmonary disease, unspecified; F60.2 Antisocial personality disorder; G40.909 Epilepsy, unspecified, not intractable, without status epilepticus; D12.5 Benign neoplasm of sigmoid colon; K57.30 Diverticulosis of large intestine without perforation or abscess without bleeding; F17.210 Nicotine dependence, cigarettes, uncomplicated; I10 Essential (primary) hypertension; F32.A Depression, unspecified; K21.9 Gastro-esophageal reflux disease without esophagitis; Z79.82 Long term (current) use of aspirin; Z79.51 Long term (current) use of inhaled steroids; Z79.899 Other long term (current) drug therapy; Z80.0 Family history of malignant neoplasm of digestive organs
CPT/HCPCS: 45380; 88305; J7120; J2405

== ENCOUNTER → 2024-10-06 | Outpatient (CLI) | payer MEDICARE, MEDICAID, SELFPAY ==
[2024-10-06 16:35] LABS: Hematocrit 40.7 % (40-54); Hemoglobin 14.0 g/dL (13.0-16.5); Immature Granulocytes Count 0.060 X10^3/uL (0.0-0.0); Mean Corp Hgb Conc 34.4 g/dL (32-36); Mean Corpuscular Volume 96.4 fL (80-94); Mean Platelet Vol. 10.1 fl (6.2-12.0); NRBC Flagged by Analyzer 0 % (0-5); Platelet Count 295 K/mm3 (150-450); RBC Distribution Width CV 12.4 % (11.6-14.6); RBC Distribution Width SD 44.1 fl (35.1-43.9); Red Blood Count 4.22 M/mm3 (4.6-6.2); White Blood Count 6.5 K/mm3 (4.4-11.0)
[2024-10-06 17:27] LABS: Valproic Acid (Depakene) Level 63 ug/mL (50-100)
[2024-10-06 17:44] LABS: Cholesterol 147 mg/dL (<=200); Low Density Lipoprotein Calc. 72 mg/dL; Triglycerides 89 mg/dL; Very Low Density Lipoprotein 18 mg/dL (5-40); Vitamin D,25 Hydroxy 58.1 ng/mL (30-100); cholesterol:hdl ratio screen 2.57
[2024-10-06 17:47] LABS: AST(SGOT) 19 U/L (<=37); Alanine Aminotransfer ALT/SGPT 12 U/L (<=46); Albumin, Serum 4.2 g/dL (3.5-5.0); Alkaline Phosphatase 94 U/L (40-129); Anion Gap 14 (5-15); BUN 8 mg/dL (4-19); BUN/Creat Ratio 9.2 RATIO (10-20); Calcium,Total 9.5 mg/dL (7.6-11.0); Carbon Dioxide 22.6 mmol/L (21.0-32.0); Chloride 101 mmol/L (98-108); Globulin 2.4 g/dL (2.2-4.2); Glucose 73 mg/dL (70-99); Potassium 5.1 mmol/L (3.3-5.1)
== END | disposition home or self-care (01) ==
PROVIDERS: PCP Family Medicine; Referring Provider Family Medicine; Visit Provider Family Medicine
DX: E78.5 Hyperlipidemia, unspecified (principal); F20.0 Paranoid schizophrenia; Z79.899 Other long term (current) drug therapy; E78.00 Pure hypercholesterolemia, unspecified; E55.9 Vitamin D deficiency, unspecified
CPT/HCPCS: 80053; 80061; 80164; 82306; 84443; 85025

== ENCOUNTER → 2024-12-28 | Outpatient (CLI) | payer MEDICARE, MEDICAID, SELFPAY ==
--- NOTE | 2024-12-28 14:04 | MRI_ITS ---
PROCEDURE: SPINE CERVICAL (ROUTINE) 12/28/2024 REASON FOR EXAM: WEAKNESS RUE NUMBNESS TECHNIQUE: Procedure Code: MRISPC Modality: MR Procedure: SPINE CERVICAL (ROUTINE) Multiplanar and multisequence images were obtained without IV contrast administration. FINDINGS: No acute fracture or subluxation. There is slight reversal of the normal curvature of the cervical spine, likely due to patient positioning or muscle spasm. Nbfd-[id number] disc space narrowing is noted from C4-5 to C7-T1. The bone marrow signal is unremarkable. The cervical cord is normal in size and signal. The prevertebral soft tissues appear unremarkable. C2-3: No significant canal or neural foraminal narrowing. C3-4: Mild bilateral uncovertebral spurring results in mild neural foraminal narrowing. A mild posterior disc bulge results in mild narrowing of the canal to 9 mm (AP). C4-5: Mild disc narrowing, a posterior disc bulge, and uncovertebral spurring result in moderate narrowing of the canal to 7 mm (AP) and severe bilateral neural foraminal narrowing. C5-6: Moderate disc narrowing, a posterior disc bulge, and prominent bilateral uncovertebral spurring result in moderate narrowing of the canal to 7 mm (AP) and severe bilateral neural foraminal narrowing. C6-7: Moderate disc narrowing, a posterior disc bulge, and prominent bilateral uncovertebral spurring result in mild narrowing of the canal to 9 mm (AP) and severe bilateral neural foraminal narrowing. C7-T1: Moderate disc narrowing, a posterior disc bulge, and prominent bilateral uncovertebral spurring result in mild narrowing of the canal to 9 mm (AP) and severe bilateral neural foraminal narrowing. MRI/Spine Cervical (Routine) IMPRESSION: Severe cervical spondylosis including multilevel [id number] canal narrowi ng and multilevel severe bilateral neural foraminal narrowing. Reading Location: [id number]
== END | disposition home or self-care (01) ==
LOC: MRI 13:57
PROVIDERS: PCP Family Medicine; Referring Provider Family Medicine; Visit Provider Family Medicine
DX: R29.898 Other symptoms and signs involving the musculoskeletal system (principal); R20.0 Anesthesia of skin
CPT/HCPCS: 72141

== ENCOUNTER → 2025-01-11 | Outpatient (CLI) | payer MEDICARE, MEDICAID, SELFPAY ==
--- NOTE | 2025-01-11 15:10 | CT_ITS ---
PROCEDURE: BRAIN/HEAD W/WO CONTRAST 01/11/2025 REASON FOR EXAM: WEAKNESS TECHNIQUE: Procedure Code: [id number] Modality: CT Procedure: BRAIN/HEAD W/WO CONTRAST Coronal and Sagittal reconstruction series were provided. CONTRAST: VOLUME: mL One or more dose reduction techniques were used (e.g., Automated exposure control, adjustment of the mA and/or kV according to patient size, use of iterative reconstruction technique). FINDINGS: No acute intracranial hemorrhage. No midline shift. The ventricles are normal in size and configuration. No extra-axial fluid collection is identified. No fracture. The calvarium is intact. Paranasal sinusitis is noted, most pronounced in the bilateral ethmoid air cells. The bilateral mastoid air cells are clear. CT/Brain/Head W/WO Contrast IMPRESSION: No acute intracranial Reading Location: [id number]
== END | disposition home or self-care (01) ==
LOC: CT 15:04
PROVIDERS: PCP Family Medicine; Referring Provider Family Medicine; Visit Provider Family Medicine
DX: R53.1 Weakness (principal)
CPT/HCPCS: 70470; Q9967

== ENCOUNTER → 2025-02-07 | Outpatient (CLI) | payer MEDICARE, MEDICAID, SELFPAY ==
--- NOTE | 2025-02-07 12:49 | NEURO ---
NCS and/or EMG Patient Report Ordering Doctor: Jorge Villarreal DATE OF SERVICE: 02/07/25 Colby presents with complaints of weakness in the right hand. Electrodiagnostic findings: Right median motor nerve demonstrates normal distal latency and amplitude with borderline reduced conduction velocity. Right ulnar motor response demonstrates a greater than 10 m/s drop in conduction velocity across the elbow. Sensory responses are within normal limits. Needle EMG testing was performed in the right upper limb. All muscles tested showed no evidence of denervation with normal motor unit action potentials. Electrodiagnostic assessment: This is an abnormal study. 1. Electrodiagnostic findings suggestive of right sided ulnar neuropathy, consistent with a mild right cubital tunnel syndrome. However, it is unclear whether this is attributing to the patient's symptoms. 2. No electrodiagnostic evidence for median neuropathy, i.e. carpal tunnel syndrome. 3. No electrodiagnostic evidence for cervical radiculopathy Multi Select Codes Neurology Neurology Interp Codes: 02457-24 Musc test done w/n test comp (interp) and 32341-15 Nrv cndj test 7-8 studies (interp)
== END | disposition home or self-care (01) ==
LOC: PSN 09:11
PROVIDERS: PCP Family Medicine; Referring Provider Family Medicine; Visit Provider Family Medicine
DX: R53.1 Weakness (principal); R20.0 Anesthesia of skin
CPT/HCPCS: 95886; 95910